=== PATIENT | female | born 1990 | race Caucasian/White ===

== ENCOUNTER 2020-03-07 09:55 | Inpatient (IN) ==
[2020-03-07] MEDS ORDERED: ONDANSETRON 4 MG/2 ML VIAL IV PRN (10:07)
[2020-03-07] MEDS ORDERED: MEPERIDINE 50 MG/1 ML VIAL IV PRN (10:07)
[2020-03-07] MEDS ORDERED: BUTORPHANOL 2 MG/ML VIAL IV PRN (10:07)
[2020-03-07] MEDS ORDERED: FAMOTIDINE 20 MG/2 ML VIAL IV ONE (10:09)
[2020-03-07] MEDS ORDERED: CITRIC ACID/SODIUM CITRATE 30 ML UDCUP PO ONE (10:09)
[2020-03-07] MEDS ORDERED: LACTATED RINGERS 1,000 ML IV ONE (10:09)
[2020-03-07] MEDS ORDERED: diphenhydrAMINE 50 MG/1 ML VIAL IV PRN ×2 (10:10)
[2020-03-07] MEDS ORDERED: hydrOXYzine HCL 25 MG/1 ML VIAL IM PRN (10:10)
[2020-03-07] MEDS ORDERED: NALOXONE 0.4 MG/ML VIAL IV PRN (10:10)
[2020-03-07] MEDS ORDERED: PROMETHAZINE 25 MG/1 ML VIAL IM ONE (10:10)
[2020-03-07 10:29] LABS: Basophils % 0.2 % (0.0-0.8); Eosinophils % 0.4 % (0.00-10.9); Hematocrit 40.9 VOL% (35.7-47.0); Hemoglobin 13.9 GM/DL (12.0-16.0); Immature Granulocytes % 0.5 %; Immature Granulocytes Absolute 0.04 #; Lymphocytes # 1.1 10*3/uL (1.4-4.0); Lymphocytes % 13.8 % (21.3-54.2); Mean Corpuscular Volume 99.3 FL (87-102); Monocytes % 6.5 % (1.7-12.7); Neutrophils % 78.6 % (38.7-73.9); Platelet Count 175 T/CUMM (130-400); Red Blood Count 4.12 MC/CUMM (3.8-5.5); Red Cell Distribution Width 14.4 % (9.3-17.3)
[2020-03-07] MEDS ORDERED: OXYTOCIN/LR 20 UNIT/1,000 ML BAG IV SCH (10:30)
[2020-03-07] MEDS ORDERED: fentaNYL 2 MCG/ROPIV 0.2% EPID 100 ML EPIDURAL SCH (10:30)
[2020-03-07] MEDS: LACTATED RINGERS 1,000 ML IV SCH ×2 (10:40→12:33)
[2020-03-07 10:46] LABS: Alanine Aminotransferase 19 U/L (13-56); Albumin 2.8 G/DL (3.4-5.0); Alkaline Phosphatase 154 U/L (45-117); Aspartate Amino Transferase 20 U/L (0-37); Bilirubin,Total < 0.39 MG/DL (0.2-1.0); Blood Urea Nitrogen 9 MG/DL (7-18); Calcium 8.7 MG/DL (8.5-10.1); Estimated Glom Filtration Rate 128 ML/MIN; Glucose 102 MG/DL (74-106); Osmolality,Calculated 271.8 MOS/KG (273-304); Total Protein 6.4 G/DL (6.4-8.3)
[2020-03-07] MEDS: ePHEDrine 50 MG/ML VIAL IV PRN ×2 (11:57→12:19)
[2020-03-07 13:16] LABS: Apearance,Urine CLEAR (Clear); Bilirubin,Urine Negative (Negative); Blood, Urine Negative (Negative); Glucose,Urine (UA) Negative (Negative); Ketones,Urine Negative (Negative); Nitrite,Urine Negative (Negative); Protein,Urine Negative; RBC,Urine <1 /HPF (0-4); Urine Color Straw (Yellow); Urine Specific Gravity 1.006 (1.001-1.035); Urine Urobilinogen < 2.0 EU/DL (0.2-1.0); WBC,Urine <1 /HPF (0-6)
[2020-03-07] MEDS ORDERED: OXYTOCIN/LR 20 UNIT/1,000 ML BAG IV ONE ×2 (15:53→21:18)
[2020-03-07] MEDS ORDERED: miSOPROStoL 200 MCG TABLET ONE (15:53)
[2020-03-07] MEDS ORDERED: TRANEXAMIC ACID 1,000 MG/10 ML VIAL ONE (15:53)
[2020-03-07] MEDS ORDERED: METHYLERGONOVINE 0.2 MG/1 ML AMP ONE (15:54)
[2020-03-07] MEDS ORDERED: CARBOPROST TROMETHAMINE 250 MCG/ML AMP IM ONE (15:54)
[2020-03-07 16:39] LABS: Cord Arterial Blood HCO3 27.5 MMOL/L
[2020-03-07 16:42] LABS: Cord Venous Blood HCO3 24.3 MMOL/L; Cord Venous Blood PO2 30.5 MMHG
[2020-03-07] MEDS ORDERED: DIPH/TET/ACEL PERT BOOSTER VACCINE 0.5 ML VIAL IM ONE (21:18)
[2020-03-07] MEDS ORDERED: HYDROCORTISONE 2.5% RECTAL CREAM 30 GM TUBE TOP PRN (21:18)
[2020-03-07] MEDS ORDERED: ACETAMINOPHEN 325 MG TABLET PO PRN (21:18)
[2020-03-07] MEDS ORDERED: BENZOCAINE 20%/MENTHOL 0.5% SPRAY 56 GM CAN TOP PRN (21:18)
[2020-03-07] MEDS ORDERED: WITCH HAZEL PADS 100/JAR TOP PRN (21:18)
[2020-03-07] MEDS ORDERED: MEASLES/MUMPS/RUBELLA VACCINE 0.5 ML VIAL SUBCUT ONE (21:18)
[2020-03-07] MEDS ORDERED: oxyCODONE/ACETAMINOPHEN 5-325 MG TABLET PO PRN ×2 (21:18)
[2020-03-07] MEDS ORDERED: BISACODYL 10 MG SUPP RECTAL PRN (21:18)
[2020-03-07] MEDS ORDERED: LANOLIN 50% CREAM 0.3 OZ TUBE TOP PRN (21:18)
[2020-03-07] MEDS ORDERED: RHO(D) IMMUNE GLOBULIN 300 MCG SYRINGE IM ONE (21:18)
[2020-03-07] MEDS ORDERED: ACETAMINOPHEN/CODEINE 300-30 MG TABLET PO PRN ×2 (21:26)
[2020-03-07] MEDS: ACETAMINOPHEN 500 MG TABLET PO PRN (22:36)
[2020-03-07] MEDS: DOCUSATE SODIUM 100 MG CAPSULE PO SCH (23:27)
[2020-03-08] MEDS: IBUPROFEN 800 MG TABLET PO PRN ×4 (00:33→19:57)
[2020-03-08] MEDS: ACETAMINOPHEN 500 MG TABLET PO PRN ×2 (04:17→10:05)
[2020-03-08 06:04] LABS: Basophils % 0.2 % (0.0-0.8); Eosinophils % 0.4 % (0.00-10.9); Hematocrit 35.9 VOL% (35.7-47.0); Hemoglobin 12.1 GM/DL (12.0-16.0); Immature Granulocytes % 0.7 %; Immature Granulocytes Absolute 0.06 #; Lymphocytes # 1.3 10*3/uL (1.4-4.0); Lymphocytes % 13.9 % (21.3-54.2); Mean Corpuscular HGB Conc 33.7 GM/DL (32-36); Mean Corpuscular Volume 99.2 FL (87-102); Mean Platelet Volume 10.5 FL (9.6-12.0); Monocytes % 6.3 % (1.7-12.7); Neutrophils % 78.5 % (38.7-73.9); Platelet Count 129 T/CUMM (130-400); Red Blood Count 3.62 MC/CUMM (3.8-5.5); Red Cell Distribution Width 14.4 % (9.3-17.3); White Blood Count 9.2 T/CUMM (4-12)
[2020-03-08] MEDS: DOCUSATE SODIUM 100 MG CAPSULE PO SCH ×2 (09:15→23:00)
[2020-03-09] MEDS: ACETAMINOPHEN 500 MG TABLET PO PRN (01:10)
[2020-03-09] MEDS: IBUPROFEN 800 MG TABLET PO PRN (06:19)
[2020-03-09] MEDS: DOCUSATE SODIUM 100 MG CAPSULE PO SCH (08:28)
[2020-03-09 11:26] VITALS: BP 115/76
== END 2020-03-09 12:30 | disposition home or self-care (01) | DRG 807 ==
LOC: N.LD 09:55 → N.OB 20:58
PROVIDERS: ADMIT Obstetrics & Gynecology; ATTEND Obstetrics & Gynecology